=== PATIENT | female | born 1990 | race Caucasian/White ===

== ENCOUNTER 2019-06-10 16:38 | Emergency (ER) | payer BC ==
[2019-06-10] MEDS ORDERED: Ibuprofen 200 MG Tab PO STA (17:10)
--- NOTE | 2019-06-10 17:13 | EDM.PDOC ---
ED HPI GENERAL MEDICAL PROBLEM - General Stated Complaint: INJURY RIGHT ARM Time Seen by Provider: 06/10/19 17:05 Source of Information: Reports: Patient History Limitations: Reports: No Limitations - History of Present Illness INITIAL COMMENTS - FREE TEXT/NARRATIVE: Patient comes emergency department today with complaints of multiple lesions after a fall today. The patient was walking her rather large dog when he took off and pulled her onto the ground and dragged her lung the ground. She did not hit her head. She has no head neck or back pain. She has no loss of consciousness. She does complain of multiple abrasions primarily to her bilateral arms as well as an abrasion to her abdomen. Denies any chest pain shortness of breath or difficulty breathing. No abdominal pain. No nausea or vomiting. No weakness dizziness lightheadedness. And unsure of when her last tetanus shot was. - Related Data Allergies Allergy/AdvReac Type Severity Reaction Status Date / Time No Known Allergies Allergy Verified 03/25/17 07:46 ED ROS GENERAL - Review of Systems Review Of Systems: Comprehensive ROS is negative, except as noted in HPI. ED EXAM, SKIN/RASH Exam: See Below Exam Limited By: No Limitations General Appearance: Alert, WD/WN Eye Exam: Bilateral Eye: PERRL Ears: Normal External Exam Nose: Normal Inspection Throat/Mouth: Normal Inspection Head: Atraumatic, Normocephalic Neck: Normal Inspection Respiratory/Chest: No Respiratory Distress, No Accessory Muscle Use Cardiovascular: Normal Peripheral Pulses Front/Back Body Diagram: 1 - superficial abrasion aprox 6 cm 2 - 1cm superficial abrasion 3 - abrasion 4 - dorsal 3rd and 4th finger PIP joint superficial abrasion. 5 - superficial abrasion/skin avulsion palm surface Course - Orders/Labs/Meds Meds: Medications Discontinued Medications Generic Name Dose Route Start Last Admin Trade Name Freq PRN Reason Stop Dose Admin Ibuprofen 600 mg 06/10/19 17:10 06/10/19 17:15 Motrin PO 06/10/19 17:11 600 mg NOW STA Administration - Re-Assessments/Exams Free Text/Narrative Re-Assessment/Exam: 06/10/19 17:44 The wounds were cleansed and re-examined and no foreign material is identified. None need repair and with puncture wounds we leave them open to heal. Watch for signs of infection. Cleanse twice daily with soap and water bacitracin and bandage until healed. She is understanding of this. Her questions were answered. Departure - Departure Time of Disposition: 17:45 Disposition: Home, Self-Care 01 Clinical Impression: Multiple abrasions - Discharge Information Additional Instructions: Tylenol and or Ibuprofen as needed for pain. Cleanse the abrasions twice daily with soap and water. Bacitracin and bandage until healed. Watch for signs of infection. Return to the ED if new or worsening symptoms. Follow up with PCP in the next 7 days if any concerns sooner if worse. Sepsis Event Note - Focused Exam Date Exam was Performed: 06/10/19 Time Exam was Performed: 17:42 - Assessment/Plan Assessment:: Multiple abrasions of the upper arms and one on the abd. Plan: Tylenol and or Ibuprofen as needed for pain. Cleanse the abrasions twice daily with soap and water. Bacitracin and bandage until healed. Watch for signs of infection. Return to the ED if new or worsening symptoms. Follow up with PCP in the next 7 days if any concerns sooner if worse.
== END 2019-06-10 18:00 | disposition home or self-care (01) ==
LOC: VM.ED 16:38
DX: S60.413A Abrasion of left middle finger, initial encounter (principal); S60.415A Abrasion of left ring finger, initial encounter; S60.511A Abrasion of right hand, initial encounter; S30.811A Abrasion of abdominal wall, initial encounter; W19.XXXA Unspecified fall, initial encounter
CPT/HCPCS: 99282; A9270